=== PATIENT | female | born 1965 | race Caucasian/White ===

== ENCOUNTER 2017-06-30 06:07 | Day surgery (SDC) | payer BC ==
[2017-06-26 09:23] VITALS: BMI 26.2
[2017-06-30] MEDS: Lidocaine 1% Inj (20ml) ONE ×2 (07:45→07:50)
[2017-06-30] MEDS: HEPARIN-NS 5,000 UNITS/500 ML 5,000 UNIT/500 ML BAG IV ONE ×2 (07:46→07:50)
[2017-06-30] MEDS ORDERED: ceFAZolin IV 1 gm in Dextrose 1 GM/50 ML BAG IVPB ONE (08:07)
[2017-06-30] MEDS ORDERED: Iohexol 240 (50 ml) ONE (08:26)
--- NOTE | 2017-06-30 09:22 | PCM.SURG1 ---
Surgeon's Initial Post Op Note - Surgeon's Notes Surgeon: Dr. Donnelly Rodent Control Worker: Dr. Montero PGy3 Type of Anesthesia: General LMA Anesthesia Administered By: Breann Pre-Operative Diagnosis: breast CA Operative Findings: same Post-Operative Diagnosis: same Operation Performed: Insertion of Double lumen Port-a-cath Specimen/Specimens Removed: none Estimated Blood Loss: EBL {In ML}: 10 Blood Products Given: N/A Drains Used: No Drains Post-Op Condition: Good Date of Surgery/Procedure: 06/30/17 Time of Surgery/Procedure: 09:22
[2017-06-30] MEDS ORDERED: HYDROmorphone 0.5 mg/0.5 ml ISec IVP PRN (09:23)
[2017-06-30] MEDS ORDERED: HYDROmorphone 0.5 mg/0.5 ml ISec ONE (09:30)
--- NOTE | 2017-06-30 10:37 | RAD ---
Chest x-ray single frontal view History: Port-A-Cath placement. Comparison: 06/26/2017 Findings: Right chest wall port with tip PICC extending to the cavoatrial junction. No evidence of postprocedure pneumothorax. No focal infiltrate or effusion. Heart size within normal limits. Impression: Right chest wall port with tip PICC extending to the cavoatrial junction. No evidence of postprocedure pneumothorax.
[2017-06-30 11:22] VITALS: BP 106/70; PULSE 66; RESP 18; TEMP 98.8; O2SAT 100
--- NOTE | 2017-06-30 12:09 | OP ---
PROCEDURE DATE: 06/30/2017 PREOPERATIVE DIAGNOSES: Lack of venous access, recently diagnosed breast cancer HER2/neda. PROCEDURE CARRIED OUT: Placement of double Port-A-Cath via right jugular vein with C-arm fluoroscopy, ultrasound-guided puncture and micropuncture technique. SURGEON: Dr. Donnelly. FINGERPRINT EXPERT: Dr. Montero, resident. ANESTHESIOLOGIST: Dr. Crain. INDICATIONS: The patient is a 52-year-old woman recently diagnosed with HER2/neda breast cancer, requires pre-intervention chemotherapy. OPERATIVE FINDINGS: Catheter was inserted uneventfully via the jugular vein. DESCRIPTION OF PROCEDURE: The patient was given general anesthesia, intravenous antibiotics had previously been administered. Using ultrasound guidance and micropuncture technique, the right jugular vein was punctured. There was a small initial puncture of the carotid artery, which was held for approximately 10 minutes. This hematoma noticed on ultrasound adjacent to the blood vessel, but of no clinical note and not visible externally. After this had been done, we then placed, changed the appropriate wires and dilators, fixed the catheter in appropriate position on the right chest wall, was flushed with heparinized saline with good return. There were no operative complications, a chest x-ray is pending. The operation carried out is placement of double chambered Port-A-Cath via the right jugular vein with C-arm fluoroscopy, ultrasound-guided puncture and micropuncture technique. Ultrasound images of the neck showed the vein was approximately 14 mm in diameter with normal compressibility and no evidence of intraluminal thrombosis. Colten Donnelly Jr., MD cc: Davina Marks MD
--- NOTE | 2017-06-30 15:21 | RAD ---
PROCEDURE: Intraoperative Fluoroscopy. HISTORY: SPENCER FINDINGS: Fluoroscopic assistance was provided for right central venous catheter placement. Please refer to the operative report from
== END 2017-06-30 14:02 | disposition home or self-care (01) ==
LOC: C.SDS 06:07
PROVIDERS: ATTEND Surgery Vascular Surgery
DX: C50.919 Malignant neoplasm of unspecified site of unspecified female breast (principal)
CPT/HCPCS: 36556; 71010; 76000; C1788; J0690; J1170; J1644; J7040